=== PATIENT | female | born 1970 | race African-American/Black ===

== ENCOUNTER 2016-11-12 14:40 | Emergency (ER) | payer OTHER ==
[~2016-11-12] VITALS: Wt 79.0 kg
[2016-11-12] MEDS ORDERED: ONDANSETRON (ODT) 4 MG TAB ODT STA (16:08)
[2016-11-12] MEDS ORDERED: OXYCODONE/ACETAMINOPHEN (10/325) TAB PO ONE (16:30)
--- NOTE | 2016-11-12 16:54 | RADRPT ---
PROCEDURE: CT Brain without contrast. CLINICAL INDICATION: Headaches. TECHNIQUE: A CT of the brain was performed on multidetector high-resolution CT scanner utilizing a xial sections from the skull base through the vertex without contrast. One or more of the following dose reduction techniques were used: Automated exposure control, Adjustment of the mA and/or kV acc ording to patient size, and/or use of iterative reconstruction technique. DOSE: CTDI = 45 mGy and the DLP = 720 mGy-cm. COMPARISON: None available FINDINGS: No acute intracranial hemorrhage, significant mass effect or midline shift. The franco-white different iation is grossly preserved. The ventricles are normal in size for age. Bilateral ethmoid sinus muco amadeo thickening. IMPRESSION: No acute intracranial abnormality identified. Bilateral ethmoid sinus mucosal thickening. RPTAT: AA .Tera Adams MD, MD Date Time Electronically viewed and signed by .Tera Adams MD, MD on 11/12/2016 16:54 .T/
[2016-11-12] MEDS ORDERED: OXYC-209 PO (17:22)
[2016-11-12] MEDS ORDERED: ONDA4TAB14 PO (17:22)
[2016-11-12 17:39] VITALS: BP 132/78; PULSE 82; RESP 18; TEMP 98
--- NOTE | 2016-11-12 17:42 | ERD ---
ER Documentation Chief Complaint Date/Time DATE: 11/12/16 TIME: 17:41 Chief Complaint HEADACHE X 2 MONTHS HPI Patient is a 46-year-old female with no medical problems who presents with headache. She has headache for 2 months. It got worse over the past 1 week. It has been gradual in onset. She was trying Motrin 800 mg 3 times a day. She went to [place] 1 week ago was given a prescription for Imitrex which did not help. She has no fevers. She was feeling left arm pain as well as bilateral lower extremity pain as well. Upon review of old medical records this is the patient's 10th visit to the ER since 2006 but the patient is only had one CT scan done in 2010. She does not know the name of her primary doctor. ROS All systems reviewed and are negative except as per history of present illness. Medications Home Meds Active Scripts Ondansetron (Ondansetron Odt) 4 Mg Tab.rapdis, 4 MG PO Q6H Y for NAUSEA AND/OR VOMITING, #30 TAB Prov:OANH OG MD 11/12/16 Oxycodone HCl/Acetaminophen (Percocet 10-325 mg Tablet) 1 Each Tablet, 1 EACH PO TID, #6 TAB Prov:OANH OG MD 11/12/16 Allergies Allergies: Coded Allergies: No Known Drug Allergies (Verified Allergy, Mild, 10/18/11) PMhx/Soc History of Surgery: Yes (C. SECTION X2, TONSILLLECTOMY @ AGE 12) Anesthesia Reaction: No Hx Neurological Disorder: Yes (LOW BACK PAIN RADIATING TOT HE LOWER EXT., LEFT LEG SPASM IN THE LAST 3 DAY) Hx Respiratory Disorders: No Hx Cardiac Disorders: No Hx Psychiatric Problems: No Hx Miscellaneous Medical Probl: Yes (herniation of disk) Hx Alcohol Use: No (OCCASIONALLY) Hx Substance Use: No Hx Tobacco Use: No FmHx Family History: diabetes Physical Exam Vitals Vital Signs Date Time Temp Pulse Resp B/P Pulse Ox O2 Delivery O2 Flow Rate FiO2 11/12/16 17:39 98.0 82 18 132/78 99 Room Air 11/12/16 14:51 98.0 83 18 135/86 99 Physical Exam Const: Mild distress secondary to pain Head: Atraumatic Eyes: Normal Conjunctiva ENT: Normal External Ears, Nose and Mouth. Neck: Full range of motion..~ No meningismus. Resp: Clear to auscultation bilaterally Cardio: Regular rate and rhythm, no murmurs Abd: Soft, non tender, non distended. Normal bowel sounds Skin: No petechiae or rashes Back: No midline or flank tenderness Ext: No cyanosis, or edema Neur: Awake and alert, cranial nerves II through XII are intact, no slurred speech Psych: Normal Mood and Affect Results 24 hrs Current Medications Medications (Trade) Dose Ordered Sig/Vinny Route PRN Reason Start Time Stop Time Status Last Admin Dose Admin Oxycodone/ Acetaminophen (Endocet (10 325)) 1 tab ONCE ONCE PO 11/12/16 16:30 11/12/16 16:31 DC 11/12/16 16:17 Ondansetron HCl (Zofran Odt) 4 mg ONCE STAT ODT 11/12/16 16:08 11/12/16 16:10 DC Procedures/MDM CT head negative per radiology. Patient is a 46-year-old female presents with a headache. The patient has no acute abnormality on CT scan. At this point I doubt intracranial hemorrhage, intra-cranial mass, or meningitis. I believe outpatient management is appropriate. The patient will be given a short course of Percocet for pain. She should follow-up with her primary doctor within 24-48 hours. She can return sooner for any worsening symptoms. Departure Diagnosis: Primary Impression: Headache Condition: Fair Patient Instructions: Self-Care for Headaches Referrals: Your doctor Additional Instructions: Call your primary care doctor TOMORROW for an appointment during the next 1-2 days.See the doctor sooner or return here if your condition worsens before your appointment time. OANH OG MD Nov 12, 2016 17:42
== END 2016-11-12 17:41 | disposition home or self-care (01) ==
LOC: FTE 14:40
DX: R51 Headache (principal)
CPT/HCPCS: 70450; Z7502; Z7610